=== PATIENT | male | born 1995 | race Asian ===

== ENCOUNTER 2024-05-16 12:59 | Emergency (ER) | payer OTHER ==
--- NOTE | 2024-05-16 14:16 | ED Physician Documentation ---
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 He states the room does not feel like it is spinning. He does not feel off balance. He feels near syncopal. He states he did not eat today. He did drink this morning, water. Denies any alcohol use. Denies any drug use. Denies any similar symptoms previously. No chest pain. No shortness of breath. He states occasionally has headaches. No vision changes. Has had nausea but no vomiting. He has had vertigo in the past as well but states this does not feel like spinning that is associated with vertigo. No fevers, chills, trauma, recent travel. Not on blood thinners. Review of Systems Constitutional: denies: Fever, Chills Respiratory: denies: Cough GI: denies: Nausea, Vomiting, Diarrhea Skin: denies: Rash Musculoskeletal: denies: Neck pain, Back pain Neurologic: denies: Head injury, LOC PD PAST MEDICAL HISTORY - Past Medical History Past Medical History: No Cardiovascular: None Respiratory: None Neuro: None Endocrine/Autoimmune: None GI: None : None HEENT: None Psych: None Musculoskeletal: None Derm: None - Past Surgical History Past Surgical History: No - Present Medications Home Medications: Ambulatory Orders Medication Instructions Recorded Confirmed No Known Home Medications 05/16/24 05/16/24 - Allergies Allergies/Adverse Reactions: Allergies Allergy/AdvReac Type Severity Reaction Status Date / Time No Known Drug Allergies Allergy Verified 05/16/24 13:03 - Social History Does the pt smoke?: No Smoking Status: Never smoker Does the pt drink ETOH?: No Does the pt have substance abuse?: No - Immunizations Immunizations are current?: Yes - POLST Patient has POLST: No PD ED PE NORMAL - Vitals Vital signs reviewed: Yes - General General: Alert and oriented X 3, No acute distress - HEENT HEENT: PERRL, Moist mucous membranes - Neck Neck: Supple, no meningeal sign - Cardiac Cardiac: RRR, Strong equal pulses - Respiratory Respiratory: No respiratory distress, Clear bilaterally - Abdomen Abdomen: Soft, Non tender, Non distended - Back Back: No CVA TTP - Derm Derm: Warm and dry - Extremities Extremities: No deformity, No tenderness to palpate, Normal ROM s pain - Neuro Neuro: Alert and oriented X 3, specifications checker 2-12 intact, No motor deficit, No sensory deficit, Normal speech, Other (No nystagmus. Normal cerebellar test.) Eye Opening: Spontaneous Motor: Obeys Commands Verbal: Oriented GCS Score: 15 - Psych Psych: Normal mood, Normal affect Results - Vitals Vitals: Vital Signs - 24 hr 05/16/24 05/16/24 05/16/24 13:03 15:07 16:47 Temperature 36.2 C L Heart Rate 78 78 68 Respiratory 14 20 18 Rate Blood Pressure 132/77 H 114/70 118/78 O2 Saturation 100 100 98 Oxygen O2 Source Room air - EKG (time done) 1443 EKG releavant findings:: EKG personally interpreted by author of this note. Relevant findings are: Rate: Rate (enter#) (53) Rhythm: NSR [place]: Normal Intervals: Normal [place] QRS: Normal Ischemia: ST elevation c/w repol - Labs Labs: Laboratory Tests 05/16/24 05/16/24 14:14 14:14 WBC 10.4 RBC 5.74 Hgb 14.9 Hct 46.8 MCV 81.5 MCH 26.0 L MCHC 31.8 L RDW 12.5 Plt Count 342 MPV 9.1 Neut # (Auto) 7.6 H Lymph # (Auto) 2.1 [place] # (Auto) 0.6 Eos # (Auto) 0.1 Baso # (Auto) 0.0 Absolute Nucleated RBC 0.00 Nucleated RBC % 0.0 Sodium 136 Potassium 4.1 Chloride 102 Carbon Dioxide 27 Anion Gap 7.0 BUN 18 Creatinine 1.1 Estimated GFR (MDRD) 80 L Glucose 112 H Calcium 10.1 Total Bilirubin 0.5 AST 26 ALT 63 H Alkaline Phosphatase 43 Total Protein 7.5 Albumin 4.9 Globulin 2.6 Albumin/Globulin Ratio 1.9 Lipase < 10 L - Rads (name of study) head CT Relevant Findings:: Final report received, See rad report PD Medical Decision Making - ED course Complexity details: reviewed results, re-evaluated patient, considered differential (No tumor, no mass, no subarachnoid hemorrhage, no meningitis, no encephalitis, no stroke.), d/w patient ED course: 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 He does not feel like things are spinning. Feels like he gets lightheaded if he stands up too fast. Also has a headache. Has a history of headaches that are similar. Normal cerebellar testing. Normal gait. GCS 15. No acute findings on laboratory testing. Negative head CT. Feels better after IV fluids, Toradol, Benadryl and Compazine. Headache resolved. No evidence of subarachnoid hemorrhage. No fevers. No recent illnesses. No meningeal signs. Patient is asymptomatic. Recommend he follow-up with his PCP for further care. No neck pain or back pain. No numbness or tingling. No focal neurological deficits. Normal gait. Patient counseled regarding signs and symptoms for which I believe and urgent re-evaluation would be necessary. Patient with good understanding of and agr eement to plan and is comfortable going home at this time This document was made in part using voice recognition software. While efforts are made to proofread this document, sound alike and grammatical errors may occur. Departure - Departure Disposition: 01 Home, Self Care Clinical Impression: Dizziness Headache Qualifiers: Headache type: unspecified Headache chronicity pattern: acute headache Intractability: not intractable Qualified Code(s): R51.9 - Headache, unspecified Condition: Good Instructions: ED Dizziness UKO, ED Cephalgia Unspecified Follow-Up: KAILA PALMA MD [Primary Care Provider] - Within 3 Days Comments: Your head CT and laboratory testing do not show any acute abnormalities today. Please follow-up with your doctor for further care. Make sure you are drinking plenty of water at home. Please return if you worsen. Forms: PCP List Discharge Date/Time: 05/16/24 16:47
[2024-05-16 14:20] LABS: BASOPHILS % (AUTO) 0.2 %; EOSINOPHILS # (AUTO) 0.1 10^3/uL (0.0-0.7); EOSINOPHILS % (AUTO) 1.2 %; HCT - HEMATOCRIT 46.8 % (42.0-52.0); HGB - HEMOGLOBIN 14.9 g/dL (14.0-18.0); LYMPHOCYTES # (AUTO) 2.1 10^3/uL (1.5-3.5); LYMPHOCYTES % (AUTO) 19.9 %; MEAN CORPUSCULAR HGB CONC 31.8 g/dL (32.0-36.0); MEAN CORPUSCULAR VOLUME 81.5 fL (80.0-94.0); MEAN PLATELET VOLUME 9.1 fL (7.4-11.4); MONOCYTES # (AUTO) 0.6 10^3/uL (0.0-1.0); MONOCYTES % (AUTO) 5.6 %; NEUTROPHILS # (AUTO) 7.6 10^3/uL (1.5-6.6); NEUTROPHILS % (AUTO) 72.6 %; PLT - PLATELET COUNT 342 10^3/uL (130-450); RED BLOOD COUNT 5.74 10^6/uL (4.70-6.10); RED CELL DISTRIBUTION WIDTH 12.5 % (12.0-15.0); WHITE BLOOD COUNT 10.4 x10^3/uL (4.8-10.8)
[2024-05-16] MEDS: SODIUM CHLORIDE 0.9% 1,000 ML IV STA (14:27)
[2024-05-16] MEDS: ONDANSETRON 4 MG/2 ML VIAL IVP STA (14:31)
[2024-05-16 14:32] LABS: ALBUMIN 4.9 g/dL (3.2-5.5); ALBUMIN/GLOBULIN RATIO 1.9 (1.0-2.2); ALKALINE PHOSPHATASE 43 IU/L (42-121); ALT ALANINE AMINOTRANSFERASE 63 IU/L (10-60); AST ASPARTATE AMINOTRANSFERASE 26 IU/L (10-42); BILIRUBIN,TOTAL 0.5 mg/dL (0.2-1.0); BUN - BLOOD UREA NITROGEN 18 mg/dL (6-20); CALCIUM 10.1 mg/dL (8.5-10.3); CARBON DIOXIDE - CO2 27 mmol/L (21-32); CHLORIDE 102 mmol/L (101-111); CREATININE 1.1 mg/dL (0.6-1.3); GFR - MDRD 80 (>89); GLUCOSE 112 mg/dL (74-104); POTASSIUM 4.1 mmol/L (3.5-4.5); SODIUM 136 mmol/L (135-145); TOTAL PROTEIN 7.5 g/dL (6.4-8.9)
[2024-05-16 14:34] LABS: LIPASE < 10 U/L (11-82)
--- NOTE | 2024-05-16 14:53 | CT Report ---
PROCEDURE: Head WO INDICATIONS: L sided FREEMAN, dizzy TECHNIQUE: Noncontrast 4.5 mm thick angled axial sections acquired from the foramen magnum to the vertex. For r adiation dose reduction, the following was used: automated exposure control, adjustment of mA and/or kV according to patient size. COMPARISON: None. FINDINGS: Image quality: Excellent. CSF spaces: Basal cisterns are patent. No extra-axial fluid collections. Ventricles are normal in size and shape. Brain: No midline shift. No intracranial masses or hemorrhage. Dominguez-white matter interface is norm al. Skull and face: Calvarium and visualized facial bones are intact, without suspicious lesions. Sinuses: Visualized sinuses and mastoids are clear. IMPRESSION: No acute intracranial pathology. Reviewed by: Venkat Villalobos MD on 05/16/2024 2:51 PM PDT Approved by: Venkat Villalobos MD on 05/16/2024 2:51 PM PDT Station ID: [id number]
[2024-05-16] MEDS: PROCHLORPERAZINE 10 MG/2 ML VIAL IVP STA (15:53)
[2024-05-16] MEDS: diphenhydrAMINE INJ 50 MG/ML VIAL IVP STA (15:53)
[2024-05-16] MEDS: KETOROLAC 30 MG/ML VIAL IVP STA (15:54)
[2024-05-16 16:51] VITALS: BP 118/78; O2SAT 98
== END 2024-05-16 16:47 | disposition home or self-care (01) ==
LOC: ED 12:59
DX: R42 Dizziness and giddiness (principal); R51.9 Headache, unspecified
CPT/HCPCS: 36415; 70450; 80053; 83690; 85025; 93005; 96374; 96375; 99284; J1200

== ENCOUNTER 2024-06-09 15:21 | Outpatient (CLI) | payer OTHER | END 2024-06-09 23:59 | disposition critical access hospital (66) | LOC: EMS 15:21 | DX: R07.9 Chest pain, unspecified (principal); R42 Dizziness and giddiness | CPT/HCPCS: A0425; A0427 ==

== ENCOUNTER 2024-06-09 15:50 | Emergency (ER) | payer OTHER ==
[2024-06-09] MEDS ORDERED: iohexoL-300 100 ML VIAL ONE (15:58)
--- NOTE | 2024-06-09 15:58 | ED Physician Documentation ---
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 He has a history of vertigo but says this is different, also has a history of tinnitus and mild hearing loss. Says he has seen ENT in the past. Current symptoms started mildly last night but more significant over the last few hours. He feels off balance and nauseous despite having received [address] Zofran on the way here. He complains of anterior substernal nonpleuritic but reportedly reproducible chest pain starting around the same time. He is not short of breath. He saw my partner about a month ago for similar symptomatology with negative workup. PD PAST MEDICAL HISTORY - Past Medical History Cardiovascular: None Respiratory: None Neuro: None Endocrine/Autoimmune: None GI: None : None HEENT: None Psych: None Musculoskeletal: None Derm: None - Past Surgical History Past Surgical History: No - Present Medications Home Medications: Ambulatory Orders Medication Instructions Recorded Confirmed Metoclopramide [Reglan] 10 mg PO Q6H PRN #20 tablet 06/09/24 - Allergies Allergies/Adverse Reactions: Allergies Allergy/AdvReac Type Severity Reaction Status Date / Time No Known Drug Allergies Allergy Verified 06/09/24 16:00 - Social History Does the pt smoke?: No Smoking Status: Never smoker Does the pt drink ETOH?: No Does the pt have substance abuse?: No - Immunizations Immunizations are current?: Yes - POLST Patient has POLST: No PD ED PE NORMAL - Vitals Vital signs reviewed: Yes - General General: Alert and oriented X 3, Other (Very soft-spoken and quiet affect) - HEENT HEENT: PERRL, EOMI - Neck Neck: Supple, no meningeal sign, No bony TTP - Cardiac Cardiac: RRR, No murmur, Other (Tender to the anterior chest wall which reproduces his chest pain.) - Respiratory Respiratory: No respiratory distress, Clear bilaterally - Abdomen Abdomen: Non tender - Extremities Extremities: No edema, No calf tenderness / cord - Neuro Neuro: Alert and oriented X 3 Eye Opening: Spontaneous Motor: Obeys Commands Verbal: Oriented GCS Score: 15 - Psych Psych: Normal mood, Normal affect NIHSS - Time Time: 15:55 - Level of Consciousness Level of consciousness: (0) Alert, Keenly responsive LOC Questions: (0) Answers both Q's correct LOC Commands: (0) Performs both correctly - Gaze Best Gaze: (0) Normal - Visual Visual: (0) No loss - Facial Palsy Facial Palsy: (0) Normal, symmetrical movement - Motor Arms (both separate) Motor Arm (right): (0) No drift Motor Arm (left): (0) No drift - Motor Legs (both separate) Motor Leg (right): (0) No drift Motor Leg (left): (0) No drift - Limb Ataxia Limb Ataxia: (0) Absent - Sensory Sensory: (0) Normal - Best Language Best Language: (0) No aphasia - Dysarthria Dysarthria: (0) Normal - Extinction and Inattention (formally neg Extinction and inattention: (0) No abnormality - Total Score/Results Total Score/Result: 0 Results - Vitals Vitals: Vital Signs - 24 hr 06/09/24 06/09/24 06/09/24 15:57 17:30 18:30 Temperature 36.7 C Heart Rate 92 109 H 82 Respiratory 21 17 18 Rate Blood Pressure 122/77 132/79 H 121/64 O2 Saturation 100 98 99 Oxygen O2 Source Room air - EKG (time done) 1558 EKG releavant findings:: EKG personally interpreted by author of this note. Relevant findings are: Rate: Rate (enter#) (78) Rhythm: NSR [place]: Normal Intervals: Normal [place] QRS: Normal Ischemia: ST elevation c/w repol. No: ST elevation c/w ischemia, ST depression - Labs Labs: Laboratory Tests 06/09/24 06/09/24 16:05 16:05 WBC 7.4 RBC 5.43 Hgb 14.3 Hct 43.7 MCV 80.5 MCH 26.3 L MCHC 32.7 RDW 12.3 Plt Count 315 MPV 9.2 Neut # (Auto) 5.8 Lymph # (Auto) 0.6 L [place] # (Auto) 0.8 Eos # (Auto) 0.0 Baso # (Auto) 0.0 Absolute Nucleated RBC 0.00 Nucleated RBC % 0.0 Sodium 137 Potassium 3.3 L Chloride 102 Carbon Dioxide 27 Anion Gap 8.0 BUN 12 Creatinine 1.1 Estimated GFR (MDRD) 80 L Glucose 104 Calcium 9.5 Total Bilirubin 0.5 AST 28 ALT 52 Alkaline Phosphatase 41 L Troponin I High Sens 2.4 Total Protein 7.0 Albumin 4.5 Globulin 2.5 Albumin/Globulin Ratio 1.8 - Rads (name of study) CT and CT angiography of the head were negative/normal. Relevant Findings:: Final report received, EMP independent interpretation of test PD Medical Decision Making - ED course ED course: 29-year-old gentleman presents with dizziness and vomiting. This does seem to be somewhat of a recurrent issue for him. Seen in the emergency department here last month for same and says has been in the emergency department previously and other areas as well. He has a nonfocal neurologic exam but does seem quite miserable. After administration of Reglan he was still vomiting but this got much better after a dose of IV Phenergan. Diagnostics in the emergency department showed a CBC which was unremarkable. CMP notable for mild hypokalemia and CT/CTA of the head and neck that was negative/normal. He did pass a p.o. challenge and was ambulatory prior to discharge. Regarding the chest pain, it was reproducible with nonischemic EKG and negative troponin. Departure - Departure Disposition: 01 Home, Self Care Clinical Impression: Dizziness, Vomiting Instructions: ED Vertigo Unspecified Prescriptions: Metoclopramide [Reglan] 10 mg PO Q6H PRN #20 tablet PRN Reason: nausea or headache Comments: I sent your prescription electronically to [facility] in [place]. Testing today which included CT and CT angiography of the head and neck were un remarkable with no significant abnormal labs. Call your doctor to arrange a follow-up appointment, make the next available appointment. In the interim, return anytime if worse or if new symptoms develop. Forms: Activity restrictions Discharge Date/Time: 06/09/24 18:47
[2024-06-09 16:10] LABS: BASOPHILS % (AUTO) 0.4 %; EOSINOPHILS % (AUTO) 0.5 %; HCT - HEMATOCRIT 43.7 % (42.0-52.0); HGB - HEMOGLOBIN 14.3 g/dL (14.0-18.0); LYMPHOCYTES # (AUTO) 0.6 10^3/uL (1.5-3.5); LYMPHOCYTES % (AUTO) 7.7 %; MEAN CORPUSCULAR HEMOGLOBIN 26.3 pg (27.0-31.0); MEAN CORPUSCULAR HGB CONC 32.7 g/dL (32.0-36.0); MEAN CORPUSCULAR VOLUME 80.5 fL (80.0-94.0); MEAN PLATELET VOLUME 9.2 fL (7.4-11.4); MONOCYTES # (AUTO) 0.8 10^3/uL (0.0-1.0); MONOCYTES % (AUTO) 11.4 %; NEUTROPHILS # (AUTO) 5.8 10^3/uL (1.5-6.6); NEUTROPHILS % (AUTO) 79.3 %; PLT - PLATELET COUNT 315 10^3/uL (130-450); RED BLOOD COUNT 5.43 10^6/uL (4.70-6.10); RED CELL DISTRIBUTION WIDTH 12.3 % (12.0-15.0); WHITE BLOOD COUNT 7.4 x10^3/uL (4.8-10.8)
[2024-06-09] MEDS: METOCLOPRAMIDE 10 MG/2 ML VIAL IVP STA (16:14)
[2024-06-09 16:31] LABS: TROPONIN I HIGH SENSITIVITY 2.4 ng/L (2.3-19.7)
[2024-06-09 16:51] LABS: ALBUMIN 4.5 g/dL (3.2-5.5); ALBUMIN/GLOBULIN RATIO 1.8 (1.0-2.2); BILIRUBIN,TOTAL 0.5 mg/dL (0.2-1.0); CALCIUM 9.5 mg/dL (8.5-10.3); CREATININE 1.1 mg/dL (0.6-1.3); POTASSIUM 3.3 mmol/L (3.5-4.5)
[2024-06-09] MEDS: PROMETHAZINE INJ 25 MG in SODIUM CHLORIDE 0.9% 50 ML IV STA (17:13)
[2024-06-09] MEDS: iohexoL-300 100 ML VIAL IVP ONE (17:23)
--- NOTE | 2024-06-09 17:43 | CT Report ---
PROCEDURE: Head WO INDICATIONS: dizzy` TECHNIQUE: Noncontrast 4.5 mm thick angled axial sections acquired from the foramen magnum to the vertex. For r adiation dose reduction, the following was used: automated exposure control, adjustment of mA and/or kV according to patient size. COMPARISON: 05/16/2024 FINDINGS: Image quality: Diagnostic CSF spaces: Basal cisterns are patent. Lateral ventricles are symmetric. Volume: Generally maintained Brain: No intracranial hemorrhage. Dominguez-white differentiation is grossly maintained. Craniofacial structures: No significant paranasal sinus opacity IMPRESSION: No acute intracranial abnormality. If there is high concern for parenchymal pathology, consider further evaluation with MRI. Reviewed by: Javan Linda MD on 06/09/2024 5:41 PM PDT Approved by: Javan Linda MD on 06/09/2024 5:41 PM PDT Station ID: [id number]
--- NOTE | 2024-06-09 17:47 | CT Report ---
PROCEDURE: Angio Head/Neck INDICATIONS: dizzy TECHNIQUE: After the administration of intravenous contrast, 1 mm thick sections acquired from the aortic arch t hrough the [place] of [place]. 3-dimensional zmzngvb-[id number]-qodgshhbsn (MIP) and/or volume renderin g reformats were acquired of the central intracranial vasculature and neck separately. For radiation dose reduction, the following was used: automated exposure control, adjustment of mA and/or kV acco rding to patient size. CONTRAST: Omni 300 80ml COMPARISON: Same-day CT, 05/16/2024 FINDINGS: Head angiography Anterior circulation: ICAs: normal and symmetric ACAs: normal and symmetric MCAs: normal and symmetric AComm: no aneurysm Venous sinuses: Posterior circulation: Dominance: equal Vertebral arteries: no stenosis, occlusion, or aneurysm Basilar artery: unremarkable PComms: no aneurysm flare maker: normal and symmetric Neck angiography Aortic arch and subclavian arteries: normal flow CCAs: no stenosis, occlusion, or aneurysm. ICA origins (by NASCET criteria): no hemodynamically significant narrowing. ICAs: no stenosis, occlusion or aneurysm. ECAs: origins are patent. Vertebral arteries: unremarkable Soft tissues: no significant mass, aneurysm, or lymphadenopathy Lung apices: no pneumothorax Bones: no acute or suspicious abnormality. Straightening of the normal cervical lordosis. IMPRESSION: No high-grade stenosis or large vessel occlusion. If there is high concern for parenchymal pathology, consider further evaluation with MRI. The estimate of stenosis included in the report of the imaging study was calculated using the NASCET method Reviewed by: Javan Linda MD on 06/09/2024 5:46 PM PDT Approved by: Javan Linda MD on 06/09/2024 5:46 PM PDT Station ID: [id number]
[2024-06-09 18:59] VITALS: BP 121/64; O2SAT 99
== END 2024-06-09 18:47 | disposition home or self-care (01) ==
LOC: EDUNIT# → ED 15:50
DX: R42 Dizziness and giddiness (principal); R11.10 Vomiting, unspecified
CPT/HCPCS: 36415; 70450; 70496; 70498; 80053; 84484; 85025; 93005; 96365; 96375; 99284; J2765; J7040; Q9967